=== PATIENT | female | born 1975 | race Caucasian/White ===

== ENCOUNTER 2016-07-29 19:32 | Emergency (ER) | payer OTHER ==
--- NOTE | 2016-07-29 21:15 | DIAGNOSTIC IMAGING REPORT ---
PROCEDURE: XR CHEST 1 VIEW INDICATION: CHEST PAIN TECHNIQUE: Portable AP view (2010 hours). COMPARISON: Compared to chest x-ray on 09/17/2015. FINDINGS: Allowing for suboptimal inspiration, lungs are clear. Heart and mediastinum are normal. Thorax is normal. IMPRESSION: 1. Negative chest.
--- NOTE | 2016-07-29 21:37 | ED NURSING NOTES ---
Clinical Report - Nurses [facility] [address] [place] [address] 07/29/2016 19:32 Patient: VICTORIA GONZALEZ TRIAGE Triage time 19:37. Acuity: LEVEL 3. Chief Complaint: CHEST PAIN and DISCOMFORT. --19:43 Everton Guillaume R.N. 19:37 07/29/16. BP: 105/78. HR: 67. RR: 15. O2 saturation: 99%. Temp: 97.5 F. Pain level now 4/10. --19:43 Everton Guillaume R.N. Weight: 89.3 kg stated. Height/Length: 65 inches Per Patient. BMI: 32.8. --19:41 Everton Guillaume R.N. Medications Gabapentin Oral. Ibuprofen Oral. --19:40 Everton Guillaume R.N. Allergies Pyridium. --19:40 Everton Guillaume R.N. Medication/allergy information source: the patient. --19:43 Everton Guillaume R.N. History Arrived by EMS. Historian: patient. Primary physician (Jeanne). Onset. (4 days ago). ( Pt was seen at [facility] in [facility] for chest pain that was called pressure and between the shoulder blades. Pt was given nitro with some relieve. Pt is still having 4/10 chest pain with no n/v.). Treatment ZANJERO: None. EMS report reviewed. See report. ( one nitro was given by EMS and one nitro given by clinic with some relieve of chest pain. ASA 324mg was given. EMs 12 lead was unremarkable.). PAST MEDICAL HX: Immunizations: up-to-date. SOCIAL HX: Current every day heavy tobacco smoker (cigarette)- less than 1 pack per day. No alcohol use or drug use. --19:43 Everton Guillaume R.N. PROBLEMS: Abdominal Muscle Strain. Arthritis. Near Syncope. Heart Disease. Torticollis. Recent Travel. Headache. UTI - Urinary Tract Infection. Sinusitis. Abdominal Pain. GI Bleeding. Gastroesophageal Reflux Disease. Gastroenteritis. Knee Injury. Back Pain. Cervical Strain. Myofascial Strain. Hypothyroidism. Muscle Strain, Upper Extremity. Migraine Headache. Neck Pain. Thyroid Disease. Sprain. Tetanus Status. Immunizations. LNMP - Last Normal Menstrual Period. --19:42 Everton Guillaume R.N. Interventions ID band on patient. To treatment room. --19:43 Everton Guillaume R.N. 19:13 07/29/2016 Site #1 started prior to arrival in doctor's office via IV in the left antecubital space with an 20g angiocath, with aseptic technique and good blood return; one attempt. Saline lock flushed with 10 mL saline (no blood was drawn). --19:38 Everton Guillaume R.N. PHYSICAL ASSESSMENT ( Pt is complaining of pain in the upper back and chest pressure 2/10 with no n/v.). GENERAL / NEURO / PSYCH: Alert. Oriented X 4. Appears in no acute distress. HEENT: Mucous membranes are pink. RESPIRATORY: Respirations not labored. Chest nontender. Breath sounds within normal limits. CVS: Normal sinus rhythm noted. Heart sounds within normal limits. Pulses within normal limits. Capillary refill less than 2 seconds. GI / : Abdomen soft and nontender. EXTREMITIES: No lower extremity edema. SKIN: Skin is warm and dry. Normal skin turgor. Skin is non-tender. --19:44 Everton Guillaume R.N. NURSING PROGRESS NOTES panel monitor, pulse oximeter and NIBP monitor placed on patient; cardiac monitor technician- Lead II. Patient ID band checked for patient name and birthdate. Blood samples drawn by nurse ; labeled in presence of the patient and sent to lab: remy set. (drawn from existing IV). Patient gowned. --19:47 Everton Guillaume R.N. EKG time: (1940). EKG was ordered, performed by a tech and shown to the ED physician. --19:54 Ayush Turpin, ER Aesthetics Instructor 20:34 07/29/2016 NITROGLYCERIN PASTE Topical Paste 1 inch. Applied to the right chest. Allergies verified and confirmed 5 rights. --20:34 Everton Guillaume R.N. 20:38 07/29/16. BP: 108/79. HR: 59. RR: 17. O2 saturation: 97%. Pain level now 2/10. --20:39 Everton Guillaume R.N. ( Pt is no longer having chest pressure, but still has back pain 4/10.). --21:32 Everton Guillaume R.N. 21:31 07/29/16. BP: 108/68. HR: 58. RR: 14. O2 saturation: 98%. Pain level now 4/10. --21:32 Everton Guillaume R.N. 22:13 07/29/16. BP: 104/60. HR: 59. RR: 15. O2 saturation: 97%. Pain level now 0/10. --22:15 Everton Guillaume R.N. ( Nitro paste was removed due to BP was 88/50. Pt was alert and oriented x 4. Pt was repositioned and BP was retaken. Pt denies any chest pain.). --22:15 Everton Guillaume R.N. 22:18 07/29/2016 Hydrocodone-APAP (Hydrocodone-Acetaminophen) PO 5/325 mg Tablets 2 tab given. Allergies verified, confirmed 5 rights and sedative warning given to the patient. --22:19 Everton Guillaume R.N. ( Pt ambulated to the bathroom and was informed to get up slowly due to the nitro that was given. Pt did feel a little dizzy, but no other complaints.). --22:32 Everton Guillaume R.N. 23:55 07/29/16. BP: 110/60. HR: 56. RR: 15. O2 saturation: 99%. Pain level now 3/10. --23:56 Everton Guillaume R.N. Checked patient name and birthdate. Blood samples drawn from the left antecubital space peripheral IV site by nurse ; labeled in presence of the patient and sent to lab: red and green top. Line flushed with 10 mL normal saline post blood draw. --23:56 Everton Guillaume R.N. DISPOSITION / DISCHARGE 01:07/30/2016 Site #1 removed upon discharge. Catheter intact. Bandage applied. --01:09 Everton Guillaume R.N. Departure time: 01:14. Condition at departure: improved. No learning barriers present. Discharge instructions provided and reviewed with the patient. Reviewed warnings. Reviewed medication(s) side effects, precautions, dosing and course information. Prescription(s) given to the patient (nitro). Activity restrictions (rest) reviewed. Work note given. ( Extensive education with nitro). The patient was discharged by the physician. She was discharged home and accompanied by spouse. She left the Emergency Department ambulatory and via private vehicle. Spouse driving. --01:15 Everton Guillaume R.N. 01:08 07/30/16. BP: 91/54. HR: 53. RR: 14. O2 saturation: 100%. Pain level now 07/13. --01:15 Everton Guillaume R.N. Locked/Released at 07/30/2016 1:15 by Everton Guillaume R.N.
--- NOTE | 2016-07-29 21:37 | ED NURSING NOTES ---
Clinical Report - Nurses [facility] [address] [place] [place] [address] 07/29/2016 19:32 Patient: VICTORIA GONZALEZ TRIAGE Triage time 19:37. Acuity: LEVEL 3. Chief Complaint: CHEST PAIN and DISCOMFORT. --19:43 Everton Guillaume R.N. 19:37 07/29/16. BP: 105/78. HR: 67. RR: 15. O2 saturation: 99%. Temp: 97.5 F. Pain level now 4/10. --19:43 Everton Guillaume R.N. Weight: 89.3 kg stated. Height/Length: 65 inches Per Patient. BMI: 32.8. --19:41 Everton Guillaume R.N. Medications Gabapentin Oral. Ibuprofen Oral. --19:40 Everton Guillaume R.N. Allergies Pyridium. --19:40 Everton Guillaume R.N. Medication/allergy information source: the patient. --19:43 Everton Guillaume R.N. History Arrived by EMS. Historian: patient. Primary physician (Jeanne). Onset. (4 days ago). ( Pt was seen at [facility] in [facility] for chest pain that was called pressure and between the shoulder blades. Pt was given nitro with some relieve. Pt is still having 4/10 chest pain with no n/v.). Treatment ORACLE FINANCIAL APPLICATION DEVELOPER: None. EMS report reviewed. See report. ( one nitro was given by EMS and one nitro given by clinic with some relieve of chest pain. ASA 324mg was given. EMs 12 lead was unremarkable.). PAST MEDICAL HX: Immunizations: up-to-date. SOCIAL HX: Current every day heavy tobacco smoker (cigarette)- less than 1 pack per day. No alcohol use or drug use. --19:43 Everton Guillaume R.N. PROBLEMS: Abdominal Muscle Strain. Arthritis. Near Syncope. Heart Disease. Torticollis. Recent Travel. Headache. UTI - Urinary Tract Infection. Sinusitis. Abdominal Pain. GI Bleeding. Gastroesophageal Reflux Disease. Gastroenteritis. Knee Injury. Back Pain. Cervical Strain. Myofascial Strain. Hypothyroidism. Muscle Strain, Upper Extremity. Migraine Headache. Neck Pain. Thyroid Disease. Sprain. Tetanus Status. Immunizations. LNMP - Last Normal Menstrual Period. --19:42 Everton Guillaume R.N. Interventions ID band on patient. To treatment room. --19:43 Everton Guillaume R.N. 19:13 07/29/2016 Site #1 started prior to arrival in doctor's office via IV in the left antecubital space with an 20g angiocath, with aseptic technique and good blood return; one attempt. Saline lock flushed with 10 mL saline (no blood was drawn). --19:38 Everton Guillaume R.N. PHYSICAL ASSESSMENT ( Pt is complaining of pain in the upper back and chest pressure 2/10 with no n/v.). GENERAL / NEURO / PSYCH: Alert. Oriented X 4. Appears in no acute distress. HEENT: Mucous membranes are pink. RESPIRATORY: Respirations not labored. Chest nontender. Breath sounds within normal limits. CVS: Normal sinus rhythm noted. Heart sounds within normal limits. Pulses within normal limits. Capillary refill less than 2 seconds. GI / : Abdomen soft and nontender. EXTREMITIES: No lower extremity edema. SKIN: Skin is warm and dry. Normal skin turgor. Skin is non-tender. --19:44 Everton Guillaume R.N. NURSING PROGRESS NOTES radiation monitor, pulse oximeter and NIBP monitor placed on patient; cardiac cath tech- Lead II. Patient ID band checked for patient name and birthdate. Blood samples drawn by nurse ; labeled in presence of the patient and sent to lab: remy set. (drawn from existing IV). Patient gowned. --19:47 Everton Guillaume R.N. EKG time: (1940). EKG was ordered, performed by a tech and shown to the ED physician. --19:54 Ayush Turpin, ER Estimation Manager 20:34 07/29/2016 NITROGLYCERIN PASTE Topical Paste 1 inch. Applied to the right chest. Allergies verified and confirmed 5 rights. --20:34 Everton Guillaume R.N. 20:38 07/29/16. BP: 108/79. HR: 59. RR: 17. O2 saturation: 97%. Pain level now 2/10. --20:39 Everton Guillaume R.N. ( Pt is no longer having chest pressure, but still has back pain 4/10.). --21:32 Everton Guillaume R.N. 21:31 07/29/16. BP: 108/68. HR: 58. RR: 14. O2 saturation: 98%. Pain level now 4/10. --21:32 Everton Guillaume R.N. 22:13 07/29/16. BP: 104/60. HR: 59. RR: 15. O2 saturation: 97%. Pain level now 0/10. --22:15 Everton Guillaume R.N. ( Nitro paste was removed due to BP was 88/50. Pt was alert and oriented x 4. Pt was repositioned and BP was retaken. Pt denies any chest pain.). --22:15 Everton Guillaume R.N. 22:18 07/29/2016 Hydrocodone-APAP (Hydrocodone-Acetaminophen) PO 5/325 mg Tablets 2 tab given. Allergies verified, confirmed 5 rights and sedative warning given to the patient. --22:19 Everton Guillaume R.N. ( Pt ambulated to the bathroom and was informed to get up slowly due to the nitro that was given. Pt did feel a little dizzy, but no other complaints.). --22:32 Everton Guillaume R.N. 23:55 07/29/16. BP: 110/60. HR: 56. RR: 15. O2 saturation: 99%. Pain level now 3/10. --23:56 Everton Guillaume R.N. Checked patient name and birthdate. Blood samples drawn from the left antecubital space peripheral IV site by nurse ; labeled in presence of the patient and sent to lab: red and green top. Line flushed with 10 mL normal saline post blood draw. --23:56 Everton Guillaume R.N. DISPOSITION / DISCHARGE 01:07/30/2016 Site #1 removed upon discharge. Catheter intact. Bandage applied. --01:09 Everton Guillaume R.N. Departure time: 01:14. Condition at departure: improved. No learning barriers present. Discharge instructions provided and reviewed with the patient. Reviewed warnings. Reviewed medication(s) side effects, precautions, dosing and course information. Prescription(s) given to the patient (nitro). Activity restrictions (rest) reviewed. Work note given. ( Extensive education with nitro). The patient was discharged by the physician. She was discharged home and accompanied by spouse. She left the Emergency Department ambulatory and via private vehicle. Spouse driving. --01:15 Everton Guillaume R.N. 01:08 07/30/16. BP: 91/54. HR: 53. RR: 14. O2 saturation: 100%. Pain level now 07/13. --01:15 Everton Guillaume R.N. Locked/Released at 07/30/2016 1:15 by Everton Guillaume R.N.
--- NOTE | 2016-07-29 21:37 | ED CLINICAL REPORT ---
Clinical Report - Physicians/Mid Levels [facility] [address] [place] [address] 07/29/2016 19:32 Patient: VICTORIA GONZALEZ Time Seen: 19:41 Jul 29 2016. Arrived- By ambulance. Historian- patient and EMS personnel. Note: (Sent from the clinic with CP). CPT: ER phys charges level 4 plus (#[id number]). EKG interpretation (#[id number]). HISTORY OF PRESENT ILLNESS Chief Complaint: CHEST PAIN. This started today and is still present. Onset during light activity. At its maximum, severity described as moderate and 6 / 10. When seen in the E.D., it was almost gone and severity described as 2 / 10. Modifying factors- relieved by nitroglycerin (one). Not worsened by anything. Relief was partial. It is described as pressure and it is described as located in the central chest area. No nausea, vomiting or diaphoresis. She has had difficulty breathing. Similar symptoms previously: None. Recent medical care: The patient was seen recently at another facility in a clinic (today). Seen for similar symptoms. Evaluation/treatment: EKG. Diagnosis: unknown. ( discussed with Dr. Harrison and he is sending the patient to the ER because of chest pain that is suspicious for cardiac-related chest pain. The patient responded to nitroglycerin in the clinic. Patient is given a Hep-Lock and 325 mg of aspirin by mouth.). REVIEW OF SYSTEMS No fever, chills, cough, pedal edema or calf pain. No fainting episodes, sore throat, abdominal pain, black stools or difficulty with urination. No skin rash, enlarged lymph nodes, joint pain or bloody stools. All systems otherwise negative, except as recorded above. PAST HISTORY Abdominal Muscle Strain. Arthritis. Near Syncope. Epiglottitis with small pericardial effusion Torticollis. Recent Travel. Headache. UTI - Urinary Tract Infection. Sinusitis. Abdominal Pain. GI Bleeding. Gastroesophageal Reflux Disease. Gastroenteritis. Knee Injury. Back Pain. Cervical Strain. Myofascial Strain. Hypothyroidism. Muscle Strain, Upper Extremity. Migraine Headache. Neck Pain. Thyroid Disease. Sprain. Tetanus Status. Immunizations. LNMP. No history of heart disease, lung disease or GI disease. Medications: Gabapentin Oral. Ibuprofen Oral. Allergies: Pyridium. SOCIAL HISTORY Heavy tobacco smoker (cigarette)- less than 1 pack per day. No alcohol use or drug use. ADDITIONAL NOTES The nursing notes have been reviewed. PHYSICAL EXAM Vital Signs: 07/29/2016 19:37 BP: 105/78. HR: 67. RR: 15. O2 saturation: 99%. Temp: 97.5 F. Appearance: Alert. No acute distress. Eyes: Pupils equal, round and reactive to light. Eyes normal inspection. ENT: Ears normal. Nose normal. Pharynx normal. Neck: Normal inspection. Neck supple. CVS: Normal heart rate and rhythm. Heart sounds normal. Pulses normal. Respiratory: No respiratory distress. Breath sounds normal. Chest nontender. Abdomen: Soft and nontender. Bowel sounds normal. Back: Normal external inspection. Skin: Skin warm. Normal skin color. No rash. Extremities: Extremities exhibit normal ROM. No calf tenderness. No lower extremity edema. Neuro: Oriented X 3. No motor deficit. No sensory deficit. Reflexes normal. LABS, X-RAYS, AND EKG EKG: Normal EKG. Chest X-ray: Normal Chest X-Ray. Laboratory Tests: CBC w Diff: (DARLEEN: 07/29/2016 19:47) ( MsgRcvd 07/29/2016 20:31) Final results Test Result Flag Units (Reference) WHITE BLOOD COUNT 8.2 K/uL (4.5-11.5) RED BLOOD COUNT 4.35 M/uL (4.00-5.20) HEMOGLOBIN 13.4 gm/dL (12.0-16.0) HEMATOCRIT 39.2 % (36.0-46.0) MEAN CELL VOLUME 90 fL (80-100) MEAN CORPUSCULAR HGB 31 pg (26-34) MEAN CORPUSCULAR HGB CONC 34 g/dL (31-37) RED CELL DISTRIBUTION WIDTH 13.7 % (11.6-14.8) PLATELET COUNT 266 K/uL (150-400) NEUTROPHIL % 45.7 L % (50-75) LYMPH % 44.1 H % (25-40) MONO % 5.5 % (3-14) EOSINOPHIL % 3.6 % (0-4) BASOPHIL % 1.1 % (0-2) CPK: (DARLEEN: 07/29/2016 00:01) ( [facility] [place] [place] 07/30/2016 00:35) Final results Test Result Flag Units (Reference) CPK 51 U/L (24-260) TROPONIN I <0.05 ng/mL (0.00-1.5) TROPONIN REFERENCE RANGE:<0.1 NEGATIVE0.1-1.5 INDETERMINANT>1.5 POSITIVE BNP: (DARLEEN: 07/29/2016 19:47) ( [facility] [place] [place] 07/29/2016 20:54) Final results Test Result Flag Units (Reference) B-TYPE NATRIURETIC PEPTIDE 8.9 pg/ml (5-100) CHEM 13 PANEL: (DARLEEN: 07/29/2016 20:18) ( [facility] 07/29/2016 20:43) Final results Test Result Flag Units (Reference) GLUCOSE 106 mg/dL (70-110) BUN 15 mg/dL (7-18) CREATININE 0.8 mg/dL (0.6-1.3) Estimated GFR >60 mL/min Estimated GFR- >60 mL/min Note: Persistent reduction over 3 months in eGFR<60 mL/min/1.73 m2 defines CKD. Patients with eGFR values>=60 mL/min/1.73 m2 may also have CKD if evidence ofpersistent proteinuria. Additional information may be foundat www.kidney.org. SODIUM 143 mmol/L (136-145) POTASSIUM 4.0 mmol/L (3.5-5.1) CHLORIDE 109 H mmol/L (98-107) CARBON DIOXIDE 26 mmol/L (21-32) CALCIUM 8.1 L mg/dL (8.5-10.1) TOTAL PROTEIN 6.6 g/dL (6.4-8.2) ALBUMIN 3.4 g/dL (3.3-5.0) BILIRUBIN, TOTAL 0.2 mg/dL (0.0-1.0) ALKALINE PHOSPHATASE 81 U/L (46-116) AST (SGOT) 12 L U/L (15-37) ALT (SGPT) 22 U/L (12-78) CPK 66 U/L (24-260) MAGNESIUM 2.2 mg/dL (1.8-2.4) TROPONIN I <0.05 ng/mL (0.00-1.5) TROPONIN REFERENCE RANGE:<0.1 NEGATIVE0.1-1.5 INDETERMINANT>1.5 POSITIVE . PROGRESS AND PROCEDURES Course of Care: Pt seen at the clinic and was given ASA 325 mg po Heplock started . NTG 1 po given and good response Pain resolved. Patient is stable. 07/29/2016 23:55 BP: 110/60. HR: 56. RR: 15. O2 saturation: 99%. Vital Signs: have been reviewed. Blood pressure normal. Bradycardic. Respiratory rate normal. Oxygen saturation normal. Consult obtained from cardiology. call returned [phone] Dr. Black. Reviewed H&P, labs, CXR, and EKG. She agreed, repeat CE's at the 4 hour vaishali, if neg D/C home w/ outpt cardiology f/u. Patient/family counseled. Disposition: Transferred. Discharged home in good condition. Condition: good. INSTRUCTIONS No strenuous activity. Rest. Your Current Medications: CONTINUE TAKING THE FOLLOWING MEDICATIONS: Gabapentin Oral. Ibuprofen Oral. Prescription Medications: Nitrostat 0.4 mg: dissolve 1 tab under tongue every 5 minutes as needed for chest pain. Dispense one (1) bottle. No refills. Substitution is permissible. Follow-up: Screening today revealed the patient's blood pressure to be in the normal range. Understanding of the discharge instructions verbalized by patient. Follow-up with: Stanley Brandt MD, Cardiology, , [facility], [address] [place] [address], [address], [place], [address] Follow up in about four days. Call for an appointment. (Electronically signed by Tristen Gifford Dr. 07/30/2016 0:54)
--- NOTE | 2016-07-29 21:37 | ED ORDER SUMMARY ---
..... Patient: VICTORIA GONZALEZ OrderSheet [facility] VisitID: [id number] [address] [place] [address] 41y, F Registration Date/Time: 07/29/2016 ORDER SHEET Weight: 89.3 kg (stated) Allergies: Pyridium GENERAL ORDERS: Chest 1V Urgent (20:00 07/29/2016 Scot HINOJOSA) (Ack 20:13 TBergley) (20:13 TBergley) Bottom Liquor Attendant (Continuous) (20:07/29/2016 Scot HINOJOSA) (Ack 20:13 TBergley) (20:23 TLewis R.N.) Cardiac Panel Stat (20:05 07/29/2016 Scot HINOJOSA) (Ack 20:13 TBergley) (20:23 TLewis R.N.) BNP Urgent (20:05 07/29/2016 Scot HINOJOSA) (Ack 20:13 TBergley) (20:23 TLewis R.N.) Oxygen (2 L/min) (NC) (20:05 07/29/2016 Scot HINOJOSA) (Ack 20:13 TBergley) (20:23 TLewis R.N.) Pulse oximeter (20:05 07/29/2016 Scot HINOJOSA) (Ack 20:13 TBergley) (20:23 TLewis R.N.) EKG - ER Stat (20:05 07/29/2016 Scot HINOJOSA) (20:06 Jg ER Sap Basis Administrator) CPK Urgent (23:43 07/29/2016 Starla Montague) (Ack 23:49 Jg ER Sap Basis Administrator) (23:55 TLewis R.N.) Troponin-I Urgent (23:43 07/29/2016 Starla Montague) (Ack 23:49 Jg ER Sap Basis Administrator) (23:55 TLewis R.N.) MEDICATION ORDERS: NitroGLYCERIN Paste Topical 1 in. (NOW) (20:11 07/29/2016 Scot HINOJOSA) (20:34 TLewis R.N.) Hydrocodone-APAP PO 10/650 mg (NOW) (22:17 07/29/2016 Scot HINOJOSA) (22:19 Chilango BarbaNBonita) IV FLUIDS: IV Saline Lock (20:05 07/29/2016 Scot HINOJOSA) (20:23 Chilango Zaragoza) ORDER SHEET NOTES: [Electronically signed by Tristen Gifford Dr. (00:54 07/30/2016)] [Electronically signed by Everton Guillaume R.N. (01:15 07/30/2016)] [Electronically locked/signed by Everton Guillaume R.N. (01:15 07/30/2016)]
--- NOTE | 2016-07-29 21:37 | ED CLINICAL REPORT ---
Clinical Report - Physicians/Mid Levels [facility] [address] [place] [address] 07/29/2016 19:32 Patient: VICTORIA GONZALEZ Time Seen: 19:41 Jul 29 2016. Arrived- By ambulance. Historian- patient and EMS personnel. Note: (Sent from the clinic with CP). CPT: ER phys charges level 4 plus (#[id number]). EKG interpretation (#[id number]). HISTORY OF PRESENT ILLNESS Chief Complaint: CHEST PAIN. This started today and is still present. Onset during light activity. At its maximum, severity described as moderate and 6 / 10. When seen in the E.D., it was almost gone and severity described as 2 / 10. Modifying factors- relieved by nitroglycerin (one). Not worsened by anything. Relief was partial. It is described as pressure and it is described as located in the central chest area. No nausea, vomiting or diaphoresis. She has had difficulty breathing. Similar symptoms previously: None. Recent medical care: The patient was seen recently at another facility in a clinic (today). Seen for similar symptoms. Evaluation/treatment: EKG. Diagnosis: unknown. ( discussed with Dr. Harrison and he is sending the patient to the ER because of chest pain that is suspicious for cardiac-related chest pain. The patient responded to nitroglycerin in the clinic. Patient is given a Hep-Lock and 325 mg of aspirin by mouth.). REVIEW OF SYSTEMS No fever, chills, cough, pedal edema or calf pain. No fainting episodes, sore throat, abdominal pain, black stools or difficulty with urination. No skin rash, enlarged lymph nodes, joint pain or bloody stools. All systems otherwise negative, except as recorded above. PAST HISTORY Abdominal Muscle Strain. Arthritis. Near Syncope. Epiglottitis with small pericardial effusion Torticollis. Recent Travel. Headache. UTI - Urinary Tract Infection. Sinusitis. Abdominal Pain. GI Bleeding. Gastroesophageal Reflux Disease. Gastroenteritis. Knee Injury. Back Pain. Cervical Strain. Myofascial Strain. Hypothyroidism. Muscle Strain, Upper Extremity. Migraine Headache. Neck Pain. Thyroid Disease. Sprain. Tetanus Status. Immunizations. LNMP. No history of heart disease, lung disease or GI disease. Medications: Gabapentin Oral. Ibuprofen Oral. Allergies: Pyridium. SOCIAL HISTORY Heavy tobacco smoker (cigarette)- less than 1 pack per day. No alcohol use or drug use. ADDITIONAL NOTES The nursing notes have been reviewed. PHYSICAL EXAM Vital Signs: 07/29/2016 19:37 BP: 105/78. HR: 67. RR: 15. O2 saturation: 99%. Temp: 97.5 F. Appearance: Alert. No acute distress. Eyes: Pupils equal, round and reactive to light. Eyes normal inspection. ENT: Ears normal. Nose normal. Pharynx normal. Neck: Normal inspection. Neck supple. CVS: Normal heart rate and rhythm. Heart sounds normal. Pulses normal. Respiratory: No respiratory distress. Breath sounds normal. Chest nontender. Abdomen: Soft and nontender. Bowel sounds normal. Back: Normal external inspection. Skin: Skin warm. Normal skin color. No rash. Extremities: Extremities exhibit normal ROM. No calf tenderness. No lower extremity edema. Neuro: Oriented X 3. No motor deficit. No sensory deficit. Reflexes normal. LABS, X-RAYS, AND EKG EKG: Normal EKG. Chest X-ray: Normal Chest X-Ray. Laboratory Tests: CBC w Diff: (DARLEEN: 07/29/2016 19:47) ( MsgRcvd 07/29/2016 20:31) Final results Test Result Flag Units (Reference) WHITE BLOOD COUNT 8.2 K/uL (4.5-11.5) RED BLOOD COUNT 4.35 M/uL (4.00-5.20) HEMOGLOBIN 13.4 gm/dL (12.0-16.0) HEMATOCRIT 39.2 % (36.0-46.0) MEAN CELL VOLUME 90 fL (80-100) MEAN CORPUSCULAR HGB 31 pg (26-34) MEAN CORPUSCULAR HGB CONC 34 g/dL (31-37) RED CELL DISTRIBUTION WIDTH 13.7 % (11.6-14.8) PLATELET COUNT 266 K/uL (150-400) NEUTROPHIL % 45.7 L % (50-75) LYMPH % 44.1 H % (25-40) MONO % 5.5 % (3-14) EOSINOPHIL % 3.6 % (0-4) BASOPHIL % 1.1 % (0-2) CPK: (DARLEEN: 07/29/2016 00:01) ( [facility] 07/30/2016 00:35) Final results Test Result Flag Units (Reference) CPK 51 U/L (24-260) TROPONIN I <0.05 ng/mL (0.00-1.5) TROPONIN REFERENCE RANGE:<0.1 NEGATIVE0.1-1.5 INDETERMINANT>1.5 POSITIVE BNP: (DARLEEN: 07/29/2016 19:47) ( [facility] 07/29/2016 20:54) Final results Test Result Flag Units (Reference) B-TYPE NATRIURETIC PEPTIDE 8.9 pg/ml (5-100) CHEM 13 PANEL: (DARLEEN: 07/29/2016 20:18) ( [facility] 07/29/2016 20:43) Final results Test Result Flag Units (Reference) GLUCOSE 106 mg/dL (70-110) BUN 15 mg/dL (7-18) CREATININE 0.8 mg/dL (0.6-1.3) Estimated GFR >60 mL/min Estimated GFR- >60 mL/min Note: Persistent reduction over 3 months in eGFR<60 mL/min/1.73 m2 defines CKD. Patients with eGFR values>=60 mL/min/1.73 m2 may also have CKD if evidence ofpersistent proteinuria. Additional information may be foundat www.kidney.org. SODIUM 143 mmol/L (136-145) POTASSIUM 4.0 mmol/L (3.5-5.1) CHLORIDE 109 H mmol/L (98-107) CARBON DIOXIDE 26 mmol/L (21-32) CALCIUM 8.1 L mg/dL (8.5-10.1) TOTAL PROTEIN 6.6 g/dL (6.4-8.2) ALBUMIN 3.4 g/dL (3.3-5.0) BILIRUBIN, TOTAL 0.2 mg/dL (0.0-1.0) ALKALINE PHOSPHATASE 81 U/L (46-116) AST (SGOT) 12 L U/L (15-37) ALT (SGPT) 22 U/L (12-78) CPK 66 U/L (24-260) MAGNESIUM 2.2 mg/dL (1.8-2.4) TROPONIN I <0.05 ng/mL (0.00-1.5) TROPONIN REFERENCE RANGE:<0.1 NEGATIVE0.1-1.5 INDETERMINANT>1.5 POSITIVE . PROGRESS AND PROCEDURES Course of Care: Pt seen at the clinic and was given ASA 325 mg po Heplock started . NTG 1 po given and good response Pain resolved. Patient is stable. 07/29/2016 23:55 BP: 110/60. HR: 56. RR: 15. O2 saturation: 99%. Vital Signs: have been reviewed. Blood pressure normal. Bradycardic. Respiratory rate normal. Oxygen saturation normal. Consult obtained from cardiology. call returned [phone] Dr. Black. Reviewed H&P, labs, CXR, and EKG. She agreed, repeat CE's at the 4 hour vaishali, if neg D/C home w/ outpt cardiology f/u. Patient/family counseled. Disposition: Transferred. Discharged home in good condition. Condition: good. INSTRUCTIONS No strenuous activity. Rest. Your Current Medications: CONTINUE TAKING THE FOLLOWING MEDICATIONS: Gabapentin Oral. Ibuprofen Oral. Prescription Medications: Nitrostat 0.4 mg: dissolve 1 tab under tongue every 5 minutes as needed for chest pain. Dispense one (1) bottle. No refills. Substitution is permissible. Follow-up: Screening today revealed the patient's blood pressure to be in the normal range. Understanding of the discharge instructions verbalized by patient. Follow-up with: Stanley Brandt MD, Cardiology, , [facility], [address] [place] [address], [address], [place], [address] Follow up in about four days. Call for an appointment. (Electronically signed by Tristen Gifford Dr. 07/30/2016 0:54)
--- NOTE | 2016-07-29 21:37 | ED ORDER SUMMARY ---
..... Patient: VICTORIA GONZALEZ OrderSheet [facility] VisitID: [id number] [address] [place] [address] 41y, F Registration Date/Time: 07/29/2016 ORDER SHEET Weight: 89.3 kg (stated) Allergies: Pyridium GENERAL ORDERS: Chest 1V Urgent (20:00 07/29/2016 Scot HINOJOSA) (Ack 20:13 TBergley) (20:13 TBergley) Skylights Assembler (Continuous) (20:07/29/2016 Scot HINOJOSA) (Ack 20:13 TBergley) (20:23 TLewis R.N.) Cardiac Panel Stat (20:05 07/29/2016 Scot HINOJOSA) (Ack 20:13 TBergley) (20:23 TLewis R.N.) BNP Urgent (20:05 07/29/2016 Scot HINOJOSA) (Ack 20:13 TBergley) (20:23 TLewis R.N.) Oxygen (2 L/min) (NC) (20:05 07/29/2016 Scot HINOJOSA) (Ack 20:13 TBergley) (20:23 TLewis R.N.) Pulse oximeter (20:05 07/29/2016 Scot HINOJOSA) (Ack 20:13 TBergley) (20:23 TLewis R.N.) EKG - ER Stat (20:05 07/29/2016 Scot HINOJOSA) (20:06 Jg ER Rn New Graduate) CPK Urgent (23:43 07/29/2016 Starla Montague) (Ack 23:49 Jg ER Rn New Graduate) (23:55 TLewis R.N.) Troponin-I Urgent (23:43 07/29/2016 Starla Montague) (Ack 23:49 Jg ER Rn New Graduate) (23:55 TLewis R.N.) MEDICATION ORDERS: NitroGLYCERIN Paste Topical 1 in. (NOW) (20:11 07/29/2016 Scot HINOJOSA) (20:34 TLewis R.N.) Hydrocodone-APAP PO 10/650 mg (NOW) (22:17 07/29/2016 Scot HINOJOSA) (22:19 Chilango BarbaNBonita) IV FLUIDS: IV Saline Lock (20:05 07/29/2016 Scot HINOJOSA) (20:23 Chilango Zaragoza) ORDER SHEET NOTES: [Electronically signed by Tristen Gifford Dr. (00:54 07/30/2016)] [Electronically signed by Everton Guillaume R.N. (01:15 07/30/2016)] [Electronically locked/signed by Everton Guillaume R.N. (01:15 07/30/2016)]
--- NOTE | 2016-07-30 01:16 | ED DISCHARGE INSTRUCTIONS ---
Patient: VICTORIA GONZALEZ General Instructions [facility] VisitID: [id number] [address] [place] [address] 41y, F Registration Date/Time: 07/29/2016 INSTRUCTIONS No strenuous activity. Rest. Your Current Medications: CONTINUE TAKING THE FOLLOWING MEDICATIONS: Gabapentin Oral. Ibuprofen Oral. Prescription Medications: Nitrostat 0.4 mg: dissolve 1 tab under tongue every 5 minutes as needed for chest pain. Dispense one (1) bottle. No refills. Substitution is permissible. Follow-up: Screening today revealed the patient's blood pressure to be in the normal range. Understanding of the discharge instructions verbalized by patient. Follow-up with: Stanley Brandt MD, Cardiology, , [address], [facility] [address], [place] [address] Follow up in about four days. Call for an appointment. ADDITIONAL INFORMATION Nitroglycerin Sublingual/Translingual spray What is this medicine? NITROGLYCERIN (jacqueline troe GLI ser in) is a type of vasodilator. It relaxes blood vessels, increasing the blood and oxygen supply to your heart. This medicine is used to prevent or relieve chest pain caused by angina. How should I use this medicine? This medicine is only for use in the mouth. Use at the first sign of an attack. You can also use this medicine 5 to 10 minutes before an event likely to produce chest pain. Follow the directions on the prescription label. Do not shake the container. Remove the plastic cover. Before using this medicine for the first time, you must prime the bottle by spraying the pump 5 times into the air away from yourself. If this medicine has not been used for 6 weeks, you must reprime the bottle by spraying once into the air away from yourself. Hold the container upright and spray either onto or underneath the tongue. Do not breathe in the spray. After each spray, close your mouth but do not swallow or rinse. Your symptoms should improve in 1 to 5 minutes. You can repeat the dose every 5 minutes for up to three doses. If you do not feel better after 1 dose, contact your doctor or health critical care cns immediately or have someone take you straight to an emergency room. Do not take your medicine more often than directed. If you take this medicine often to relieve symptoms of angina, your doctor or health critical care cns may provide you with different instructions to manage your symptoms. If symptoms do not go away after following these instructions, it is important to call 9-- immediately. Do not take more than 3 doses over 15 minutes. Talk to your field representatives director regarding the use of this medicine in children. Special care may be needed. What side effects may I notice from receiving this medicine? Side effects that you should report to your doctor or health critical care cns as soon as possible: blurred vision dry mouth skin rash sweating the feeling of extreme pressure in the head unusually weak or tired Side effects that usually do not require medical attention (report to your doctor or health critical care cns if they continue or are bothersome): flushing of the face or neck headache irregular heartbeat, palpitations nausea, vomiting What may interact with this medicine? Do not take this medicine with any of the following medications: certain migraine medicines like ergotamine and dihydroergotamine (DHE) medicines used to treat erectile dysfunction like sildenafil, tadalafil, and vardenafil This medicine may also interact with the following medications: medicines for high blood pressure What if I miss a dose? This does not apply. This medicine is only used as needed. Where should I keep my medicine? Keep out of the reach of children. Store at room temperature between 15 and 30 degrees C (59 and 86 degrees F). Do not spray near flames. Do not forcefully open or burn the container. Throw away any unused medicine after the expiration date. What should I tell my health care provider before I take this medicine? They need to know if you have any of these conditions: liver disease recent heart attack an unusual or allergic reaction to nitroglycerin, other medicines, foods, dyes, or preservatives or trying to get breast-feeding What should I watch for while using this medicine? Tell your doctor or health critical care cns if you feel your medicine is no longer working. Keep this medicine with you at all times. Sit or lie down when you take your medicine to prevent falling if you feel dizzy or faint after using it. Try to remain calm. This will help you to feel better faster. If you feel dizzy, take several deep breaths and lie down with your feet propped up, or bend forward with your head resting between your knees. You may get drowsy or dizzy. Do not drive, use machinery, or do anything that needs mental alertness until you know how this drug affects you. Do not stand or sit up quickly, especially if you are an older patient. This reduces the risk of dizzy or fainting spells. Alcohol can make you more drowsy and dizzy. Avoid alcoholic drinks. Do not treat yourself for coughs, colds, or pain while you are taking this medicine without asking your doctor or health critical care cns for advice. Some ingredients may increase your blood pressure. You have been given the following additional information: Nitroglycerin Sublingual/Translingual spray No strenuous activity. Rest. (Electronically signed by Tristen Gifford Dr. 07/30/2016 0:54)
--- NOTE | 2016-07-30 01:16 | ED MAR SUMMARY ---
..... Medication Administration Record [facility] [address] [address] Patient: VICTORIA GONZALEZ Visit ID: [id number] 41y, F Weight: 89.3 kg Height/Length: 65 in BMI: 32.8 ALLERGIES: Pyridium Given 20:34 07/29/2016 Everton Guillaume R.N. Medication Administered: NITROGLYCERIN PASTE [TOPICAL], Dose: 1 in. Paste Topical. Medication Ordered: NitroGLYCERIN Paste Topical 1 in. (NOW). Given 22:18 07/29/2016 Everton Guillaume R.N. Medication Administered: HYDROCODONE-APAP [PO] (HYDROCODONE-ACETAMINOPHEN), Dose: 2 tab 5/325 mg Tablets PO. Medication Ordered: Hydrocodone-APAP PO 10/650 mg (NOW).
--- NOTE | 2016-07-30 01:16 | ED MED RECONCILIATION SUMMARY ---
Patient: VICTORIA GONZALEZ Medication Reconciliation Report [facility] VisitID: [id number] [address] [place] [address] 41y, F Registration Date/Time: 07/29/2016 Weight: 89.3 kg Height/Length: 65 in. BMI: 32.8 ALLERGIES: Pyridium The patient's Home Medications are listed below: CONTINUE TAKING THE FOLLOWING MEDICATIONS: Gabapentin Oral Ibuprofen Oral The source(s) of the original Home Medication information: patient The following Medications were given to the patient in the Emergency Department: NITROGLYCERIN PASTE [TOPICAL] Topical 1 in., administered: 07/29/2016 8:34:00 PM Hydrocodone-APAP [PO] PO 2 tab, administered: 07/29/2016 10:18:00 PM The following Medications were prescribed to the patient: Nitrostat 0.4 mg: dissolve 1 tab under tongue every 5 minutes as needed for chest pain. Dispense one (1) bottle. No refills. Substitution is permissible. -- Tristen Gifford Dr.
--- NOTE | 2016-07-30 01:16 | ED DISCHARGE INSTRUCTIONS ---
Patient: VICTORIA GONZALEZ General Instructions [facility] VisitID: [id number] [address] [place] [address] 41y, F Registration Date/Time: 07/29/2016 INSTRUCTIONS No strenuous activity. Rest. Your Current Medications: CONTINUE TAKING THE FOLLOWING MEDICATIONS: Gabapentin Oral. Ibuprofen Oral. Prescription Medications: Nitrostat 0.4 mg: dissolve 1 tab under tongue every 5 minutes as needed for chest pain. Dispense one (1) bottle. No refills. Substitution is permissible. Follow-up: Screening today revealed the patient's blood pressure to be in the normal range. Understanding of the discharge instructions verbalized by patient. Follow-up with: Stanley Brandt MD, Cardiology, , [address], [facility] [address], [place] [address] Follow up in about four days. Call for an appointment. ADDITIONAL INFORMATION Nitroglycerin Sublingual/Translingual spray What is this medicine? NITROGLYCERIN (jacqueline troe GLI ser in) is a type of vasodilator. It relaxes blood vessels, increasing the blood and oxygen supply to your heart. This medicine is used to prevent or relieve chest pain caused by angina. How should I use this medicine? This medicine is only for use in the mouth. Use at the first sign of an attack. You can also use this medicine 5 to 10 minutes before an event likely to produce chest pain. Follow the directions on the prescription label. Do not shake the container. Remove the plastic cover. Before using this medicine for the first time, you must prime the bottle by spraying the pump 5 times into the air away from yourself. If this medicine has not been used for 6 weeks, you must reprime the bottle by spraying once into the air away from yourself. Hold the container upright and spray either onto or underneath the tongue. Do not breathe in the spray. After each spray, close your mouth but do not swallow or rinse. Your symptoms should improve in 1 to 5 minutes. You can repeat the dose every 5 minutes for up to three doses. If you do not feel better after 1 dose, contact your doctor or health day care assistant immediately or have someone take you straight to an emergency room. Do not take your medicine more often than directed. If you take this medicine often to relieve symptoms of angina, your doctor or health day care assistant may provide you with different instructions to manage your symptoms. If symptoms do not go away after following these instructions, it is important to call 9-- immediately. Do not take more than 3 doses over 15 minutes. Talk to your cuff runner regarding the use of this medicine in children. Special care may be needed. What side effects may I notice from receiving this medicine? Side effects that you should report to your doctor or health day care assistant as soon as possible: blurred vision dry mouth skin rash sweating the feeling of extreme pressure in the head unusually weak or tired Side effects that usually do not require medical attention (report to your doctor or health day care assistant if they continue or are bothersome): flushing of the face or neck headache irregular heartbeat, palpitations nausea, vomiting What may interact with this medicine? Do not take this medicine with any of the following medications: certain migraine medicines like ergotamine and dihydroergotamine (DHE) medicines used to treat erectile dysfunction like sildenafil, tadalafil, and vardenafil This medicine may also interact with the following medications: medicines for high blood pressure What if I miss a dose? This does not apply. This medicine is only used as needed. Where should I keep my medicine? Keep out of the reach of children. Store at room temperature between 15 and 30 degrees C (59 and 86 degrees F). Do not spray near flames. Do not forcefully open or burn the container. Throw away any unused medicine after the expiration date. What should I tell my health care provider before I take this medicine? They need to know if you have any of these conditions: liver disease recent heart attack an unusual or allergic reaction to nitroglycerin, other medicines, foods, dyes, or preservatives or trying to get breast-feeding What should I watch for while using this medicine? Tell your doctor or health day care assistant if you feel your medicine is no longer working. Keep this medicine with you at all times. Sit or lie down when you take your medicine to prevent falling if you feel dizzy or faint after using it. Try to remain calm. This will help you to feel better faster. If you feel dizzy, take several deep breaths and lie down with your feet propped up, or bend forward with your head resting between your knees. You may get drowsy or dizzy. Do not drive, use machinery, or do anything that needs mental alertness until you know how this drug affects you. Do not stand or sit up quickly, especially if you are an older patient. This reduces the risk of dizzy or fainting spells. Alcohol can make you more drowsy and dizzy. Avoid alcoholic drinks. Do not treat yourself for coughs, colds, or pain while you are taking this medicine without asking your doctor or health day care assistant for advice. Some ingredients may increase your blood pressure. You have been given the following additional information: Nitroglycerin Sublingual/Translingual spray No strenuous activity. Rest. (Electronically signed by Tristen Gifford Dr. 07/30/2016 0:54)
--- NOTE | 2016-07-30 01:16 | ED MED RECONCILIATION SUMMARY ---
Patient: VICTORIA GONZALEZ Medication Reconciliation Report [facility] VisitID: [id number] [address] [place] [address] 41y, F Registration Date/Time: 07/29/2016 Weight: 89.3 kg Height/Length: 65 in. BMI: 32.8 ALLERGIES: Pyridium The patient's Home Medications are listed below: CONTINUE TAKING THE FOLLOWING MEDICATIONS: Gabapentin Oral Ibuprofen Oral The source(s) of the original Home Medication information: patient The following Medications were given to the patient in the Emergency Department: NITROGLYCERIN PASTE [TOPICAL] Topical 1 in., administered: 07/29/2016 8:34:00 PM Hydrocodone-APAP [PO] PO 2 tab, administered: 07/29/2016 10:18:00 PM The following Medications were prescribed to the patient: Nitrostat 0.4 mg: dissolve 1 tab under tongue every 5 minutes as needed for chest pain. Dispense one (1) bottle. No refills. Substitution is permissible. -- Tristen Gifford Dr.
--- NOTE | 2016-07-30 01:16 | ED MAR SUMMARY ---
..... Medication Administration Record [facility] [address] [place] [address] Patient: VICTORIA GONZALEZ Visit ID: [id number] 41y, F Weight: 89.3 kg Height/Length: 65 in BMI: 32.8 ALLERGIES: Pyridium Given 20:34 07/29/2016 Everton Guillaume R.N. Medication Administered: NITROGLYCERIN PASTE [TOPICAL], Dose: 1 in. Paste Topical. Medication Ordered: NitroGLYCERIN Paste Topical 1 in. (NOW). Given 22:18 07/29/2016 Everton Guillaume R.N. Medication Administered: HYDROCODONE-APAP [PO] (HYDROCODONE-ACETAMINOPHEN), Dose: 2 tab 5/325 mg Tablets PO. Medication Ordered: Hydrocodone-APAP PO 10/650 mg (NOW).
== END 2016-07-30 01:15 | disposition home or self-care (01) ==
LOC: ED SRH 19:32
DX: R07.9 Chest pain, unspecified (principal); E07.9 Disorder of thyroid, unspecified; F17.210 Nicotine dependence, cigarettes, uncomplicated; Z79.1 Long term (current) use of non-steroidal anti-inflammatories (NSAID); Z79.899 Other long term (current) drug therapy
CPT/HCPCS: 90074; 90100; 90616; 91320; 92610; 92720; 95059